=== PATIENT | female | born 1980 | race African-American/Black ===

== ENCOUNTER 2020-06-03 20:58 | Emergency (ER) | payer OTHER ==
[~2020-06-03] VITALS: Ht 154.9 cm; Wt 86.2 kg
[~2020-06-03 20:58] MED LIST: BACTRIM DS TAB1 EACH PO; IBUPROFEN 600600 M1 PO; NOHOMEMEDICATIONS; NORCO 5-325 TA1 EACH PO; PENICILLIN VK500 M1 PO; PERCOCET 5-3251 EACH PO
[2020-06-03 21:00] VITALS: BP 131/74
[2020-06-03] MEDS ORDERED: NORCO5 PO (21:45)
[2020-06-03] MEDS ORDERED: BACTRIM DS TAB1 EAC1 PO (21:45)
== END 2020-06-03 22:07 | disposition home or self-care (01) ==
LOC: ER 20:58
DX: N76.4 Abscess of vulva (principal)